=== PATIENT | female | born 1950 | race Caucasian/White ===

== ENCOUNTER 2018-06-26 04:05 | Inpatient (IN) | payer MEDICARE ==
[~2018-06-26] VITALS: Ht 154.9 cm; Wt 64.4 kg
[2018-06-26] MEDS ORDERED: NITROGLYCERIN 0.4 MG/TAB BOTTLE SL PRN (05:30)
[2018-06-26] MEDS ORDERED: ALBUTEROL FS 2.5 MG/0.5 ML VIAL.NEB NEB PRN (05:30)
[2018-06-26] MEDS ORDERED: MAGNESIUM HYDROXIDE 30 ML UDC PO PRN (05:30)
[2018-06-26] MEDS ORDERED: ONDANSETRON HCL/PF 4 MG/2 ML VIAL IVP PRN (05:30)
[2018-06-26] MEDS ORDERED: HYDROCODONE/APAP 5/325MG 1 EACH TABLET PO PRN (05:30)
[2018-06-26] MEDS ORDERED: MAG HYDROX/AL HYDROX/SIMETH 30 ML UDC PO PRN (05:30)
[2018-06-26] MEDS ORDERED: MORPHINE SULFATE INJ 2 MG/ML DISP.SYRIN IV PRN (05:30)
[2018-06-26] MEDS ORDERED: ZOLPIDEM TARTRATE 5 MG TABLET PO PRN (05:30)
[2018-06-26] MEDS ORDERED: ACETAMINOPHEN 325 MG TABLET PO PRN (05:30)
[2018-06-26 06:12] VITALS: BP 121/71
[2018-06-26] MEDS ORDERED: ALEN70TA6 PO (06:16)
[2018-06-26] MEDS ORDERED: ASPI-1169 PO (06:16)
[2018-06-26] MEDS ORDERED: CALC-20 PO (06:16)
--- NOTE | 2018-06-26 06:25 | NUR ---
EXEC. CREATIVE DIRECTOR NOTE: RECEIVE PATIENT FROM [facility], WITH NO ACUTE DISTRESS NOTED. BREATHING EVEN AND UNLABORED, NO SOB NOTED. PATIENT DENIES CHEST PAIN AT THIS TIME. IV TO RAC #[address] ORIENTED PATIENT TO ROOM AND USE OF CALL LIGHT. TELE READING SR 70. BED LOCKED AND IN LOWEST POSITION, CALL LIGHT IN REACH. WILL CONTINUE TO MONITOR.
[2018-06-26 07:06] LABS: BASOPHILS % (AUTO) 0.7 % (0.0-2.0); EOSINOPHILS % (AUTO) 1.8 % (0.0-6.0); HEMATOCRIT 41 % (33-45); HEMOGLOBIN 13.9 g/dL (11.5-14.8); LYMPHOCYTES # (AUTO) 1.9 /CMM (0.8-4.8); LYMPHOCYTES % (AUTO) 25.2 % (20.0-44.0); MEAN CORPUSCULAR HGB CONC 34 g/dl (31.0-36.0); MEAN CORPUSCULAR VOLUME 87 fL (82-100); MONOCYTES # (AUTO) 0.6 /CMM (0.1-1.30); MONOCYTES % (AUTO) 7.7 % (2.0-12.0); NEUTROPHILS # (AUTO) 4.8 /CMM (1.8-8.9); NEUTROPHILS % (AUTO) 64.6 % (43.0-81.0); PLATELET COUNT (AUTO) 190 /CMM (150-450); RED BLOOD CELL COUNT(AUTO) 4.72 MIL/uL (4.0-5.2); WHITE BLOOD COUNT (AUTO) 7.4 K/uL (4.3-11.0)
[2018-06-26 07:25] LABS: ALANINE AMINOTRANSFERASE 33 U/L (12-78); ALBUMIN 3.7 g/dL (3.4-5.0); ALKALINE PHOSPHATASE 52 U/L (46-116); ASPARTATE AMINOTRANSFERASE 16 U/L (15-37); B-TYPE NATRIURETIC PEPTIDE 48 PG/ML (0-125); BILIRUBIN,TOTAL 0.4 mg/dL (0.2-1.0); CALCIUM, SERUM 8.6 mg/dL (8.5-10.1); CARBON DIOXIDE 25 mmol/L (21-32); CHLORIDE 106 mmol/L (98-107); CREATININE 0.6 mg/dL (0.6-1.3); GLUCOSE 164 mg/dL (74-106); MAGNESIUM 1.9 mg/dL (1.8-2.4); PHOSPHORUS 4.1 mg/dL (2.5-4.9); POTASSIUM 3.8 mmol/L (3.5-5.1); SODIUM SERUM 142 mmol/L (136-145); TOTAL PROTEIN, SERUM 6.7 g/dL (6.4-8.2); UREA NITROGEN, BLOOD 14 mg/dL (7-18)
--- NOTE | 2018-06-26 07:25 | NUR ---
TEST DESK OPERATOR OPENING NOTES RECEIVED PT RESTING COMFORTABLY IN BED. A/O X4. VERBALLY RESPONSIVE, DENIES PAIN OR ANY DISCOMFORTS AT THIS TIME. ON TELE-MONITORING WITH CURRENT READING OF NSR WITH HR OF 69 AT THIS TIME, NO C/O CHEST PAIN OR ANY CARDIAC DISTRESS VOICED AT THIS TIME. ON ROOM AIR, BREATHING EVEN AND UNLABORED. IV ACCESS ON RAC G#20 INTACT AND PATENT. SAFETY MEASURES IN PLACE. BED IN LOW LOCKED POSITION WITH SR UP X2. CALL LIGHT IN REACH. WILL CONTINUE TO MONITOR.
[2018-06-26 07:29] LABS: CHOLESTEROL 187 mg/dL (<200); HDL CHOLESTEROL 43 mg/dL (40-60); LDL 121 mg/dL (0-99); THYROID STIMULATING HORMONE 3.915 uIU/mL (0.358-3.74); TRIGLYCERIDES 162 mg/dL (30-150)
[2018-06-26] MEDS: PANTOPRAZOLE 40 MG TABLET.DR PO SCH ×2 (07:30→08:37)
[2018-06-26 08:00] VITALS: BP 128/69
[2018-06-26] MEDS: ASPIRIN EC 81 MG TABLET.DR PO SCH (08:37)
[2018-06-26] MEDS ORDERED: ASPIRIN 81 MG TAB.CHEW PO SCH (09:00)
--- NOTE | 2018-06-26 09:16 | NUR ---
RT NOTE: RT WAS NOT NOTIFIED OF STAT ORDER FOR EKG. EKG DONE AT THIS TIME AND REPORTED TO NURSE. TRANSMITTED TO CARDIO DELIVERY [facility].
[2018-06-26] MEDS: ATORVASTATIN 10 MG TABLET PO SCH (09:20)
[2018-06-26] MEDS: METOPROLOL TARTRATE 50 MG TABLET PO SCH ×3 (09:20→21:29)
[2018-06-26 16:00] VITALS: BP 98/64
--- NOTE | 2018-06-26 18:58 | NUR ---
MS RN CLOSING NOTES PT AWAKE AND RESTING IN BED AT MODERATE HIGH BACKREST POSITION. A/O X4. AMBULATORY AND ABLE TO MAKE NEEDS KNOWN, NO C/O CHEST PAIN ALL THROUGHOUT THE DAY. ON ROOM AIR, TOLERATING WELL WITH NO ACUTE RESPIRATORY DISTRESS NOTED. IV-HL ON RAC G#20 INTACT AND PATENT. ALL NEEDS AND CARE ATTENDED WELL. SAFETY MEASURES KEPT IN PLACE. BED IN LOW LOCKED POSITION WITH SR UP X2. CALL LIGHT IN REACH. WILL ENDORSE TO AMBULATORY SERVICES REPRESENTATIVE NURSE FOR ARGENIS.
--- NOTE | 2018-06-26 19:15 | NUR ---
MS RN NOTES RECEIVED PT IN BED AWAKE AND ABLE MAKE NEEDS KNOWN. PT A/O X4 ARMENIAN AND BULGARIAN SPEAKING. RESPIRATIONS EVEN AND UNLABORED WITH NO S/S OF ACUTE DISTRESS OR SOB NOTED. IV-HL ON RAC G#20 INTACT AND PATENT WITH NO S/S OF INFILTRATION OR REDNESS. SAFETY MEASURES IN PLACE WITH BED IN LOWEST LOCKED POSITION WITH SIDE RAILS UP X2. CALL LIGHT WITHIN REACH. WILL CONTINUE TO MONITOR.
[2018-06-26 20:48] VITALS: BP 111/64
[2018-06-27 07:14] LABS: BASOPHILS % (AUTO) 0.6 % (0.0-2.0); HEMATOCRIT 42 % (33-45); HEMOGLOBIN 14.5 g/dL (11.5-14.8); LYMPHOCYTES # (AUTO) 2.4 /CMM (0.8-4.8); LYMPHOCYTES % (AUTO) 32.2 % (20.0-44.0); MEAN CORPUSCULAR HGB CONC 35 g/dl (31.0-36.0); MEAN CORPUSCULAR VOLUME 86 fL (82-100); MONOCYTES # (AUTO) 0.6 /CMM (0.1-1.30); MONOCYTES % (AUTO) 8.5 % (2.0-12.0); NEUTROPHILS # (AUTO) 4.2 /CMM (1.8-8.9); NEUTROPHILS % (AUTO) 56.7 % (43.0-81.0); PLATELET COUNT (AUTO) 192 /CMM (150-450); RED BLOOD CELL COUNT(AUTO) 4.83 MIL/uL (4.0-5.2); WHITE BLOOD COUNT (AUTO) 7.4 K/uL (4.3-11.0)
--- NOTE | 2018-06-27 07:21 | NUR ---
MS RN NOTES PT IN BED ASLEEP BUT EASILY AWOKEN VERBALLY OR BY TOUCH. PT A/O X4 CROATIAN AND MAORI SPEAKING AND ABLE MAKE NEEDS KNOWN. RESPIRATIONS EVEN AND UNLABORED WITH NO S/S OF ACUTE DISTRESS OR SOB NOTED THROUGHOUT SHIFT. NO COMPLAINTS OF PAIN AT THIS TIME. IV-HL ON RAC G#20 INTACT AND PATENT WITH NO S/S OF INFILTRATION OR REDNESS. SAFETY MEASURES IN PLACE WITH BED IN LOWEST LOCKED POSITION WITH SIDE RAILS UP X2. CALL LIGHT WITHIN REACH. WILL ENDORSE TO ONCOMING NURSE FOR ARGENIS.
--- NOTE | 2018-06-27 07:36 | NUR ---
MS RN OPENING NOTES RECEIVED PT IN BED, AWAKE. BELARUSIAN SPEAKING, CAN UNDERSTAND AND SPEAK A LITTLE LAO. A/O X4. TOLERATING RA, WITH NO ACUTE RESPIRATORY DISTRESS NOTED. PT DENIES ANY PAIN OR DISCOMFORT AT THIS TIME. PIV TO RAC G20, FLUSHED WITH NS INTACT AND OPERATIONAL. PT DENIES ANY QUESTIONS AND CONCERNS AT THIS MOMENT. PT KEPT COMFORTABLE. PT'S BED IN LOWEST, LOCKED POSITION WITH SR X2. CALL LIGHT AND FLUID KEPT WITHIN REACH. WILL CONTINUE PLAN OF CARE.
[2018-06-27 07:42] LABS: CREATININE 0.6 mg/dL (0.6-1.3); POTASSIUM 4.2 mmol/L (3.5-5.1)
[2018-06-27 08:00] VITALS: BP 109/68
[2018-06-27] MEDS: ASPIRIN EC 81 MG TABLET.DR PO SCH (08:11)
[2018-06-27] MEDS: ATORVASTATIN 10 MG TABLET PO SCH (08:13)
[2018-06-27] MEDS: METOPROLOL TARTRATE 50 MG TABLET PO SCH (08:16)
[2018-06-27] MEDS ORDERED: METFORMIN 500 MG TABLET PO SCH (10:00)
--- NOTE | 2018-06-27 10:14 | NUR ---
MS RN NOTES /DR SOLIS ORDERED CTCA, PT IS ALLERGIC TO IODINE/CONTRAST. MD OFFERED CHOICE TO TAKE SOLUMEDROL AND BENADRYL BEFORE PROCEDURE. PT DOESN'T WANT TO RISK IT DUE TO PREVIOUS EXPERIENCE. PT STILL REFUSED THE PROCEDURE. MD DR SOLIS MADE AWARE. CN MADE AWARE WELL.
--- NOTE | 2018-06-27 15:34 | NUR ---
MS RN NOTES SEEN AND EVALUATED BY MD/ED. AWARE OF PT'S REFUSAL FOR CTCA. PT REQUESTED TO BE DISCHARGE. MD/ED OKAY WITH IT. ORDER PLACED BY SHEFALI/UZAIR. PT MADE AWARE. AWAITING FOR FAMILY FOR PEER TUTOR.
[2018-06-27 16:00] VITALS: BP 120/73
--- NOTE | 2018-06-27 16:24 | NUR ---
MS FINANCIAL AID ADMINISTRATOR NOTES PT TO DISCHARGE HOME. PT A/O X4, AMBULATORY. ACCOMPANIED BY DAUGHTER. PT'S SKIN INTACT, NO PHOTOS TAKEN PER PT PREFERENCE. TOLERATING RA, WITH NO ACUTE RESPIRATORY DISTRESS NOTED. PT DENIES PAIN OR ANY DISCOMFORT. DISCHARGE INSTRUCTIONS REVIEWED WITH DAUGHTER PRESENT BEDSIDE. SIGNED INVENTORY LIST BY PT; ALL BELONGINGS WITH THE PT. ALL NEEDS AND CARE PROVIDED. CN AND MD/ED AWARE OF DISCHARGE. PT WITH THE DAUGHTER LEFT THE UNIT AT 1615, ESCORTED BY SALES SERVICE REPRESENTATIVE TO THE LOBBY, PT WALKING PER HER PREFERENCE WELL.
== END 2018-06-27 16:15 | disposition home or self-care (01) | DRG 311 ==
LOC: TELE 05:14 → MED 08:51
PROVIDERS: ADMIT Internal Medicine; ATTEND Internal Medicine
DX: I20.0 Unstable angina (principal); I10 Essential (primary) hypertension; M81.0 Age-related osteoporosis without current pathological fracture; E78.5 Hyperlipidemia, unspecified; E11.65 Type 2 diabetes mellitus with hyperglycemia
CPT/HCPCS: 36415; 80048-TC; 80053-TC; 80061-TC; 83735-TC; 83880; 84100-TC; 84443-TC; 84484-TC; 85025-TC; 87081-TC; 93307-TC; G0378